=== PATIENT | female | born 1945 ===

== ENCOUNTER 2016-06-23 11:14 | Emergency (ER) | payer OTHER ==
--- NOTE | 2016-06-23 12:38 | DIAGNOSTIC IMAGING REPORT ---
PROCEDURE: XR CHEST 1 VIEW INDICATION: CHEST PAIN TECHNIQUE: Portable AP view 11:52 am COMPARISON: None. FINDINGS: Lungs are clear. Heart and mediastinum are normal. Thorax is normal. IMPRESSION: 1. Negative chest.
--- NOTE | 2016-06-23 13:15 | ED CLINICAL REPORT ---
Clinical Report - Physicians/Mid Levels [facility] [address] [place] [address] 06/23/2016 11:15 Patient: ALPA MERINO Time Seen: 11:37. Arrived- By private vehicle. Historian- patient. HISTORY OF PRESENT ILLNESS Chief Complaint: CHEST PAIN. At its maximum, severity described as moderate. When seen in the E.D., severity described as mild. Modifying factors. Not worsened by anything. Not relieved by anything. It is described as dull and "pain" and it is described as located in the central chest area. No radiation. This started yesterday and is still present. Onset during light activity. No nausea, vomiting, difficulty breathing or diaphoresis. (Pt also c/o "dizziness" (room was spinning). Pt denies h/o cardiac issues. No recent illness. Pt has not had a recent stress test. She is visiting from [place], and was sent here from urgent care.). Similar symptoms previously: None. Recent medical care: The patient was seen recently at another facility in a clinic. ( Pt saw her PCP in [place] before coming up to visit her son.). REVIEW OF SYSTEMS No fever, chills, cough, pedal edema or calf pain. No fainting episodes, headache, sore throat, blurred vision or abdominal pain. No black stools, difficulty with urination, skin rash, enlarged lymph nodes or joint pain. No bloody stools. All systems otherwise negative, except as recorded above. PAST HISTORY Problems: Sciatica. Elevated Cholesterol. Hypertension. Additional Surgeries: no known surgeries. Medications: Lovastatin Oral (Tablet 20 mg) 1 tablet, daily. Atenolol Oral (Tablet 25 mg) 1 tablet, daily. Percocet Oral, as needed, sciatic pain. Allergies: No Known Drug Allergy. SOCIAL HISTORY Never smoker. No alcohol use or drug use. FAMILY HISTORY Negative. ADDITIONAL NOTES The nursing notes have been reviewed. PHYSICAL EXAM Vital Signs: 06/23/2016 11:24 BP: 167/80. HR: 71. RR: 16. O2 saturation: 96%. Temp: 98.6 F. Pain level now: 410. Have been reviewed. Appearance: Alert. Oriented X3. No acute distress. Eyes: Pupils equal, round and reactive to light. Eyes normal inspection. ENT: Nose normal. Neck: Normal inspection. CVS: Normal heart rate and rhythm. Heart sounds normal. Pulses normal. Respiratory: No respiratory distress. Breath sounds normal. Abdomen: Soft and nontender. Back: Normal external inspection. Skin: Skin warm and dry. Normal skin color. No rash. Normal skin turgor. Extremities: Extremities exhibit normal ROM. No lower extremity edema. Neuro: Oriented X 3. No motor deficit. No sensory deficit. LABS, X-RAYS, AND EKG EKG: EKG time: (1138). No acute process. No acute ischemia. Normal EKG. Normal sinus rhythm. Rate: 68. Normal P waves. Normal ANA. Normal QRS complex. Normal axis. Normal ST and T waves, QT and QTc. Prior EKG unavailable. The study has been interpreted contemporaneously by me. The study has been independently viewed by me. The EKG appears to be a good tracing. I agree with and confirm the computer reading of the EKG. Rhythm Strip #1: Time: (1135). Rate= 71. Normal sinus rhythm. Regular rhythm. Narrow QRS complexes. No ectopy. Conduction normal. Normal ST segments and T waves. The study was interpreted by me. Chest X-ray: No acute disease. Normal lung markings present. Normal heart size. Mediastinum normal. Great vessels normal. Soft tissues normal. No infiltrate. No fracture. No bony lesion present. Views: AP (portable). Technique: good. The X-rays were independently viewed by me, interpreted by the radiologist and contemporaneously by me and discussed with the radiologist. Prior films were not available for comparison. Laboratory Tests: CBC w Diff: (MALVIN: 06/23/2016 11:50) ( MsgRcvd 06/23/2016 11:58) Final results Test Result Flag Units (Reference) WHITE BLOOD COUNT 7.1 K/uL (4.5-11.5) RED BLOOD COUNT 4.81 M/uL (4.00-5.20) HEMOGLOBIN 14.6 gm/dL (12.0-16.0) HEMATOCRIT 43.2 % (36.0-46.0) MEAN CELL VOLUME 90 fL (80-100) MEAN CORPUSCULAR HGB 30 pg (26-34) MEAN CORPUSCULAR HGB CONC 34 g/dL (31-37) RED CELL DISTRIBUTION WIDTH 12.4 % (11.6-14.8) PLATELET COUNT 282 K/uL (150-400) NEUTROPHIL % 58.2 % (50-75) LYMPH % 34.3 % (25-40) MONO % 6.3 % (3-14) EOSINOPHIL % 0.8 % (0-4) BASOPHIL % 0.4 % (0-2) CHEM 13 PANEL: (MALVIN: 06/23/2016 11:50) ( MsgRcvd 06/23/2016 12:29) Final results Test Result Flag Units (Reference) GLUCOSE 131 H mg/dL (70-110) BUN 18 mg/dL (7-18) CREATININE 0.7 mg/dL (0.6-1.3) Estimated GFR >60 mL/min Estimated GFR- >60 mL/min Note: Persistent reduction over 3 months in eGFR<60 mL/min/1.73 m2 defines CKD. Patients with eGFR values>=60 mL/min/1.73 m2 may also have CKD if evidence ofpersistent proteinuria. Additional information may be foundat www.kidney.org. SODIUM 141 mmol/L (136-145) POTASSIUM 4.0 mmol/L (3.5-5.1) CHLORIDE 104 mmol/L (98-107) CARBON DIOXIDE 26 mmol/L (21-32) CALCIUM 9.3 mg/dL (8.5-10.1) TOTAL PROTEIN 8.0 g/dL (6.4-8.2) ALBUMIN 3.6 g/dL (3.3-5.0) BILIRUBIN, TOTAL 0.3 mg/dL (0.0-1.0) ALKALINE PHOSPHATASE 73 U/L (46-116) AST (SGOT) 24 U/L (15-37) ALT (SGPT) 35 U/L (12-78) MAGNESIUM 2.1 mg/dL (1.8-2.4) CPK 72 U/L (24-260) TROPONIN I 0.05 ng/mL (0.00-1.5) TROPONIN REFERENCE RANGE:<0.1 NEGATIVE0.1-1.5 INDETERMINANT>1.5 POSITIVE . Pulse Oximetry: 06/23/2016 11:24 O2 saturation: 96%. (FIO2 - room air). Interpretation: normal. PROGRESS AND PROCEDURES Course of Care: Pt was worked up for her chest pain, and work-up was unremarkable. Pt's discomfort had started the day before, and I did feel that it was unlikely that she had suffered an [place] with negative markers this far out. However, I did feel it was important for the pt to follow up for a stress test, and I did offer to set this up with cardiology for early next week (today is Sunday). Pt declined the offer, however, with translation from her son, and stated she would rather see her PCP when she returns to [place] in a couple of weeks. I have emphasized the importance of this to the pt and her family, and they have expressed understanding. They understand that if sx worsen or recur, pt should return to the ED. Patient and family counseled in person regarding the patient's stable condition, test results, diagnosis and need for follow-up. Concerns were addressed. Old medical records reviewed. Disposition: Discharged. Condition: stable and improved. CLINICAL IMPRESSION Chest pain .12 lead EKG performed. INSTRUCTIONS (Your labs, EKG, and x-ray look good.). Warnings: GENERAL WARNINGS: Return or contact your physician immediately if your condition worsens or changes unexpectedly, if not improving as expected, or if other problems arise. Your Current Medications: CONTINUE TAKING THE FOLLOWING MEDICATIONS: Atenolol Oral : Tablet 25 mg, 1 tablet daily. Lovastatin Oral : Tablet 20 mg, 1 tablet daily. Percocet Oral : prn, sciatic pain. Follow-up: Follow up with your doctor. Call for the next available appointment. Reason for referral: schedule stress test. Understanding of the discharge instructions verbalized by patient and family. (Electronically signed by Chanel Soto MD 07/02/2016 15:58)
--- NOTE | 2016-06-23 13:15 | ED NURSING NOTES ---
Clinical Report - Nurses [facility] [address] [place] [address] 06/23/2016 11:15 Patient: ALPA MERINO TRIAGE Triage time 11:24. Acuity: LEVEL 3. Chief Complaint: CHEST PAIN and (substernal, non-reproducible chest pressure, dizziness - room spinning. Onset yesterday.). 11:30 06/23/16. SEPSIS SCREEN: Sepsis Screen. Negative (no infection suspected/documented). FATOU COMA SCORE: [place] Coma Scale: 15- eyes open spontaneously (4); best verbal response- oriented x 4 (5); best motor response- obeys commands (6). --11:33 Andrei Muhammad R.N. 11:24 06/23/16. BP: 167/80. HR: 71. RR: 16. O2 saturation: 96% on room air. Temp: 98.6 F (oral). Pain level now: 06/26. --11:33 Andrei Muhammad R.N. Weight: 74.8 kg stated. Height/Length: 62 inches Per Patient. BMI: 30.2. --11:28 Andrei Muhammad R.N. Medications Percocet Oral, as needed, sciatic pain. --11:32 Andrei Muhammad R.N. Atenolol Oral (Tablet 25 mg) 1 tablet, daily. --11:32 Andrei Muhammad R.N. Lovastatin Oral (Tablet 20 mg) 1 tablet, daily. --11:32 Andrei Muhammad R.N. Allergies No Known Drug Allergy. --11:32 Andrei Muhammad R.N. History Arrived by private vehicle. Historian: patient and family (son is interpreting (pt speaks mostly Palestinian)). Accompanied by family. ( sent from her PCP office). Treatment AIRCRAFT SYSTEMS TECHNICIAN: None. SOCIAL HX: Never smoker. No alcohol use or drug use. ABUSE ASSESSMENT: No report of abuse. --11:33 Andrei Muhammad R.N. PROBLEMS: Elevated Cholesterol. Hypertension. --11:28 Andrei Muhammad R.N. Sciatica. --11:33 Andrei Muhammad R.N. Interventions ID band on patient. To treatment room. --11:33 Andrei Muhammad R.N. PHYSICAL ASSESSMENT 11:37 06/23/16. Ambulatory to room. GENERAL / NEURO / PSYCH: Alert. Oriented X 4. ( c/o dissiness). HEENT: Mucous membranes are pink. RESPIRATORY: Respirations not labored. Chest nontender. Breath sounds within normal limits. CVS: Normal sinus rhythm noted. Heart sounds within normal limits. Pulses within normal limits. ( substernal chest pressure, non-radiating, non-reproducible). Capillary refill less than 2 seconds. GI / : Abdomen soft and nontender. EXTREMITIES: No lower extremity edema. SKIN: Skin is warm and dry. Normal skin turgor. Skin is non-tender. --11:38 Andrei Muhammad R.N. NURSING PROGRESS NOTES 11:38 06/23/16. groundwater monitoring technician, pulse oximeter and NIBP monitor placed on patient; lunchroom monitor- Lead II and aVR; monitor alarms on. Patient gowned. Two patient identifiers checked. Call light placed in reach. Bed placed in lowest position. Brakes of bed on. Patient ready for evaluation- chart flagged. --11:38 Andrei Muhammad R.N. EKG time: (0108). EKG was ordered, performed by a tech and shown to the ED physician. --11:39 Charmaine White 11:51 06/23/2016 Site #1 started via IV in the right hand with an 20g angiocath, with aseptic technique and good blood return; one attempt. Blood drawn: rainbow set. Labeled in the presence of the patient and sent to the lab. Saline lock flushed with 10 mL saline. --12:02 Jud Foster R.N. ( Introduction to pt, no needs at this time. Informed of covering while primary RN is on lunch. Family said no needs at this time and thank you.). --12:13 Tisha Aguirre R.N. DISPOSITION / DISCHARGE 13:37 06/23/2016 Site #1 removed upon discharge. Bandaid applied. --13:37 Jud Foster R.N. Condition at departure: improved. No learning barriers present. Discharge instructions provided and reviewed with the patient and family. Reviewed medication(s) (Melatonin for sleep 5mg and follow up with Doctor for sleep). Patient and family verbalized understanding. Written instructions provided in Surinamese. The patient was discharged by the physician. She was discharged home and accompanied by family. She left the Emergency Department ambulatory and via private vehicle. Family member driving. --13:37 Jud Foster R.N. 13:33 06/23/16. BP: 142/53 (regular adult cuff) taken on the left arm, while lying. HR: 69. RR: 18. O2 saturation: 100% on nasal cannula at 2 liters/minute. Temp: 98.5 F (oral). Pain level now: 0/10. --13:37 Jud Foster R.N. Departure time: 13:40 Jun 23 2016. --13:40 Jud Foster R.N. Locked/Released at 06/23/2016 19:33 by Jud Foster R.N.
--- NOTE | 2016-06-23 13:15 | ED ORDER SUMMARY ---
..... Patient: ALPA MERINO OrderSheet [facility] VisitID: [id number] [address] [place] [address] 70y, F Registration Date/Time: 06/23/2016 ORDER SHEET Weight: 74.8 kg (stated) Allergies: No Known Drug Allergy GENERAL ORDERS: Tower Cleaner (Continuous) (Chest Pain) (11:34 06/23/2016 Del R.N. verbal order read back to April MCINTOSH) (Ack 11:41 Lon) (11:43 JSimbeck R.N.) CBC w Diff Urgent (11:35 06/23/2016 Del R.N. verbal order read back to April MCINTOSH) (Ack 11:40 Lon) (11:58 JSimbeck R.N.) UA-Culture if indicated Urgent (11:35 06/23/2016 Del R.N. verbal order read back to April MCINTOSH) (Ack 11:41 Lon) (11:58 JSimbeck R.N.) Oxygen (2 L/min) (NC) (11:35 06/23/2016 Del R.N. verbal order read back to April MCINTOSH) (Ack 11:41 Lon) (11:44 JSimbeck R.N.) Pulse oximeter (11:35 06/23/2016 Del R.N. verbal order read back to April MCINTOSH) (Ack 11:41 Lon) (11:43 Lolaeck R.N.) EKG - ER Stat (11:35 06/23/2016 Del R.N. verbal order read back to April MCINTOSH) (11:39 Lon) Cardiac Panel Stat (11:36 06/23/2016 Del R.N. verbal order read back to April MCINTOSH) (Ack 11:41 Lon) (11:58 JSimbeck R.N.) Chest 1V Urgent (11:44 06/23/2016 April MCINTOSH) (Ack 11:46 Lon) (12:02 JSanders R.N.) MEDICATION ORDERS: IV FLUIDS: IV Saline Lock (11:35 06/23/2016 JRomanelli R.N. verbal order read back to April MCINTOSH) (12:02 Harpreet Jimenez) ORDER SHEET NOTES: [Electronically signed by Jud Foster R.N. (19:33 06/23/2016)] [Electronically signed by Chanel Soto MD (15:58 07/02/2016)] [Electronically locked/signed by Jud Foster R.N. (19:33 06/23/2016)]
--- NOTE | 2016-06-23 13:15 | ED NURSING NOTES ---
Clinical Report - Nurses [facility] [address] [place] [address] 06/23/2016 11:15 Patient: ALPA MERINO TRIAGE Triage time 11:24. Acuity: LEVEL 3. Chief Complaint: CHEST PAIN and (substernal, non-reproducible chest pressure, dizziness - room spinning. Onset yesterday.). 11:30 06/23/16. SEPSIS SCREEN: Sepsis Screen. Negative (no infection suspected/documented). FATOU COMA SCORE: [place] Coma Scale: 15- eyes open spontaneously (4); best verbal response- oriented x 4 (5); best motor response- obeys commands (6). --11:33 Andrei Muhammad R.N. 11:24 06/23/16. BP: 167/80. HR: 71. RR: 16. O2 saturation: 96% on room air. Temp: 98.6 F (oral). Pain level now: 06/26. --11:33 Andrei Muhammad R.N. Weight: 74.8 kg stated. Height/Length: 62 inches Per Patient. BMI: 30.2. --11:28 Andrei Muhammad R.N. Medications Percocet Oral, as needed, sciatic pain. --11:32 Andrei Muhammad R.N. Atenolol Oral (Tablet 25 mg) 1 tablet, daily. --11:32 Andrei Muhammad R.N. Lovastatin Oral (Tablet 20 mg) 1 tablet, daily. --11:32 Andrei Muhammad R.N. Allergies No Known Drug Allergy. --11:32 Andrei Muhammad R.N. History Arrived by private vehicle. Historian: patient and family (son is interpreting (pt speaks mostly Turkish)). Accompanied by family. ( sent from her PCP office). Treatment BOILER SERVICE TECHNICIAN: None. SOCIAL HX: Never smoker. No alcohol use or drug use. ABUSE ASSESSMENT: No report of abuse. --11:33 Andrei Muhammad R.N. PROBLEMS: Elevated Cholesterol. Hypertension. --11:28 Andrei Muhammad R.N. Sciatica. --11:33 Andrei Muhammad R.N. Interventions ID band on patient. To treatment room. --11:33 Andrei Muhammad R.N. PHYSICAL ASSESSMENT 11:37 06/23/16. Ambulatory to room. GENERAL / NEURO / PSYCH: Alert. Oriented X 4. ( c/o dissiness). HEENT: Mucous membranes are pink. RESPIRATORY: Respirations not labored. Chest nontender. Breath sounds within normal limits. CVS: Normal sinus rhythm noted. Heart sounds within normal limits. Pulses within normal limits. ( substernal chest pressure, non-radiating, non-reproducible). Capillary refill less than 2 seconds. GI / : Abdomen soft and nontender. EXTREMITIES: No lower extremity edema. SKIN: Skin is warm and dry. Normal skin turgor. Skin is non-tender. --11:38 Andrei Muhammad R.N. NURSING PROGRESS NOTES 11:38 06/23/16. manager performance improvement, pulse oximeter and NIBP monitor placed on patient; drill hand- Lead II and aVR; monitor alarms on. Patient gowned. Two patient identifiers checked. Call light placed in reach. Bed placed in lowest position. Brakes of bed on. Patient ready for evaluation- chart flagged. --11:38 Andrei Muhammad R.N. EKG time: (5318). EKG was ordered, performed by a tech and shown to the ED physician. --11:39 Charmaine White 11:51 06/23/2016 Site #1 started via IV in the right hand with an 20g angiocath, with aseptic technique and good blood return; one attempt. Blood drawn: rainbow set. Labeled in the presence of the patient and sent to the lab. Saline lock flushed with 10 mL saline. --12:02 Jud Foster R.N. ( Introduction to pt, no needs at this time. Informed of covering while primary RN is on lunch. Family said no needs at this time and thank you.). --12:13 Tisha Aguirre R.N. DISPOSITION / DISCHARGE 13:37 06/23/2016 Site #1 removed upon discharge. Bandaid applied. --13:37 Jud Foster R.N. Condition at departure: improved. No learning barriers present. Discharge instructions provided and reviewed with the patient and family. Reviewed medication(s) (Melatonin for sleep 5mg and follow up with Doctor for sleep). Patient and family verbalized understanding. Written instructions provided in [place]. The patient was discharged by the physician. She was discharged home and accompanied by family. She left the Emergency Department ambulatory and via private vehicle. Family member driving. --13:37 Jud Foster R.N. 13:33 06/23/16. BP: 142/53 (regular adult cuff) taken on the left arm, while lying. HR: 69. RR: 18. O2 saturation: 100% on nasal cannula at 2 liters/minute. Temp: 98.5 F (oral). Pain level now: 0/10. --13:37 Jud Foster R.N. Departure time: 13:40 Jun 23 2016. --13:40 Jud Foster R.N. Locked/Released at 06/23/2016 19:33 by Jud Foster R.N.
--- NOTE | 2016-06-23 13:15 | ED ORDER SUMMARY ---
..... Patient: ALPA MERINO OrderSheet [facility] VisitID: [id number] [address] [place] [address] 70y, F Registration Date/Time: 06/23/2016 ORDER SHEET Weight: 74.8 kg (stated) Allergies: No Known Drug Allergy GENERAL ORDERS: Cafeteria Counter Attendant (Continuous) (Chest Pain) (11:34 06/23/2016 Del R.N. verbal order read back to April MCINTOSH) (Ack 11:41 Lon) (11:43 JSimbeck R.N.) CBC w Diff Urgent (11:35 06/23/2016 Del R.N. verbal order read back to April MCINTOSH) (Ack 11:40 Lon) (11:58 JSimbeck R.N.) UA-Culture if indicated Urgent (11:35 06/23/2016 Del R.N. verbal order read back to April MCINTOSH) (Ack 11:41 Lon) (11:58 JSimbeck R.N.) Oxygen (2 L/min) (NC) (11:35 06/23/2016 Del R.N. verbal order read back to April MCINTOSH) (Ack 11:41 Lon) (11:44 JSimbeck R.N.) Pulse oximeter (11:35 06/23/2016 Del R.N. verbal order read back to April MCINTOSH) (Ack 11:41 Lon) (11:43 Lolaeck R.N.) EKG - ER Stat (11:35 06/23/2016 Del R.N. verbal order read back to April MCINTOSH) (11:39 Lon) Cardiac Panel Stat (11:36 06/23/2016 Del R.N. verbal order read back to pAril MCINTOSH) (Ack 11:41 Lon) (11:58 JSimbeck R.N.) Chest 1V Urgent (11:44 06/23/2016 April MCINTOSH) (Ack 11:46 Lon) (12:02 JSanders R.N.) MEDICATION ORDERS: IV FLUIDS: IV Saline Lock (11:35 06/23/2016 JRomanelli R.N. verbal order read back to April MCINTOSH) (12:02 Harpreet Jimenez) ORDER SHEET NOTES: [Electronically signed by Jud Foster R.N. (19:33 06/23/2016)] [Electronically signed by Chanel Soto MD (15:58 07/02/2016)] [Electronically locked/signed by Jud Foster R.N. (19:33 06/23/2016)]
--- NOTE | 2016-06-23 13:15 | ED CLINICAL REPORT ---
Clinical Report - Physicians/Mid Levels [facility] [address] [place] [address] 06/23/2016 11:15 Patient: ALPA MERINO Time Seen: 11:37. Arrived- By private vehicle. Historian- patient. HISTORY OF PRESENT ILLNESS Chief Complaint: CHEST PAIN. At its maximum, severity described as moderate. When seen in the E.D., severity described as mild. Modifying factors. Not worsened by anything. Not relieved by anything. It is described as dull and "pain" and it is described as located in the central chest area. No radiation. This started yesterday and is still present. Onset during light activity. No nausea, vomiting, difficulty breathing or diaphoresis. (Pt also c/o "dizziness" (room was spinning). Pt denies h/o cardiac issues. No recent illness. Pt has not had a recent stress test. She is visiting from [place], and was sent here from urgent care.). Similar symptoms previously: None. Recent medical care: The patient was seen recently at another facility in a clinic. ( Pt saw her PCP in [place] before coming up to visit her son.). REVIEW OF SYSTEMS No fever, chills, cough, pedal edema or calf pain. No fainting episodes, headache, sore throat, blurred vision or abdominal pain. No black stools, difficulty with urination, skin rash, enlarged lymph nodes or joint pain. No bloody stools. All systems otherwise negative, except as recorded above. PAST HISTORY Problems: Sciatica. Elevated Cholesterol. Hypertension. Additional Surgeries: no known surgeries. Medications: Lovastatin Oral (Tablet 20 mg) 1 tablet, daily. Atenolol Oral (Tablet 25 mg) 1 tablet, daily. Percocet Oral, as needed, sciatic pain. Allergies: No Known Drug Allergy. SOCIAL HISTORY Never smoker. No alcohol use or drug use. FAMILY HISTORY Negative. ADDITIONAL NOTES The nursing notes have been reviewed. PHYSICAL EXAM Vital Signs: 06/23/2016 11:24 BP: 167/80. HR: 71. RR: 16. O2 saturation: 96%. Temp: 98.6 F. Pain level now: 410. Have been reviewed. Appearance: Alert. Oriented X3. No acute distress. Eyes: Pupils equal, round and reactive to light. Eyes normal inspection. ENT: Nose normal. Neck: Normal inspection. CVS: Normal heart rate and rhythm. Heart sounds normal. Pulses normal. Respiratory: No respiratory distress. Breath sounds normal. Abdomen: Soft and nontender. Back: Normal external inspection. Skin: Skin warm and dry. Normal skin color. No rash. Normal skin turgor. Extremities: Extremities exhibit normal ROM. No lower extremity edema. Neuro: Oriented X 3. No motor deficit. No sensory deficit. LABS, X-RAYS, AND EKG EKG: EKG time: (1138). No acute process. No acute ischemia. Normal EKG. Normal sinus rhythm. Rate: 68. Normal P waves. Normal ANA. Normal QRS complex. Normal axis. Normal ST and T waves, QT and QTc. Prior EKG unavailable. The study has been interpreted contemporaneously by me. The study has been independently viewed by me. The EKG appears to be a good tracing. I agree with and confirm the computer reading of the EKG. Rhythm Strip #1: Time: (1135). Rate= 71. Normal sinus rhythm. Regular rhythm. Narrow QRS complexes. No ectopy. Conduction normal. Normal ST segments and T waves. The study was interpreted by me. Chest X-ray: No acute disease. Normal lung markings present. Normal heart size. Mediastinum normal. Great vessels normal. Soft tissues normal. No infiltrate. No fracture. No bony lesion present. Views: AP (portable). Technique: good. The X-rays were independently viewed by me, interpreted by the radiologist and contemporaneously by me and discussed with the radiologist. Prior films were not available for comparison. Laboratory Tests: CBC w Diff: (MALVIN: 06/23/2016 11:50) ( MsgRcvd 06/23/2016 11:58) Final results Test Result Flag Units (Reference) WHITE BLOOD COUNT 7.1 K/uL (4.5-11.5) RED BLOOD COUNT 4.81 M/uL (4.00-5.20) HEMOGLOBIN 14.6 gm/dL (12.0-16.0) HEMATOCRIT 43.2 % (36.0-46.0) MEAN CELL VOLUME 90 fL (80-100) MEAN CORPUSCULAR HGB 30 pg (26-34) MEAN CORPUSCULAR HGB CONC 34 g/dL (31-37) RED CELL DISTRIBUTION WIDTH 12.4 % (11.6-14.8) PLATELET COUNT 282 K/uL (150-400) NEUTROPHIL % 58.2 % (50-75) LYMPH % 34.3 % (25-40) MONO % 6.3 % (3-14) EOSINOPHIL % 0.8 % (0-4) BASOPHIL % 0.4 % (0-2) CHEM 13 PANEL: (MALVIN: 06/23/2016 11:50) ( MsgRcvd 06/23/2016 12:29) Final results Test Result Flag Units (Reference) GLUCOSE 131 H mg/dL (70-110) BUN 18 mg/dL (7-18) CREATININE 0.7 mg/dL (0.6-1.3) Estimated GFR >60 mL/min Estimated GFR- >60 mL/min Note: Persistent reduction over 3 months in eGFR<60 mL/min/1.73 m2 defines CKD. Patients with eGFR values>=60 mL/min/1.73 m2 may also have CKD if evidence ofpersistent proteinuria. Additional information may be foundat www.kidney.org. SODIUM 141 mmol/L (136-145) POTASSIUM 4.0 mmol/L (3.5-5.1) CHLORIDE 104 mmol/L (98-107) CARBON DIOXIDE 26 mmol/L (21-32) CALCIUM 9.3 mg/dL (8.5-10.1) TOTAL PROTEIN 8.0 g/dL (6.4-8.2) ALBUMIN 3.6 g/dL (3.3-5.0) BILIRUBIN, TOTAL 0.3 mg/dL (0.0-1.0) ALKALINE PHOSPHATASE 73 U/L (46-116) AST (SGOT) 24 U/L (15-37) ALT (SGPT) 35 U/L (12-78) MAGNESIUM 2.1 mg/dL (1.8-2.4) CPK 72 U/L (24-260) TROPONIN I 0.05 ng/mL (0.00-1.5) TROPONIN REFERENCE RANGE:<0.1 NEGATIVE0.1-1.5 INDETERMINANT>1.5 POSITIVE . Pulse Oximetry: 06/23/2016 11:24 O2 saturation: 96%. (FIO2 - room air). Interpretation: normal. PROGRESS AND PROCEDURES Course of Care: Pt was worked up for her chest pain, and work-up was unremarkable. Pt's discomfort had started the day before, and I did feel that it was unlikely that she had suffered an ID with negative markers this far out. However, I did feel it was important for the pt to follow up for a stress test, and I did offer to set this up with cardiology for early next week (today is Sunday). Pt declined the offer, however, with translation from her son, and stated she would rather see her PCP when she returns to [place] in a couple of weeks. I have emphasized the importance of this to the pt and her family, and they have expressed understanding. They understand that if sx worsen or recur, pt should return to the ED. Patient and family counseled in person regarding the patient's stable condition, test results, diagnosis and need for follow-up. Concerns were addressed. Old medical records reviewed. Disposition: Discharged. Condition: stable and improved. CLINICAL IMPRESSION Chest pain .12 lead EKG performed. INSTRUCTIONS (Your labs, EKG, and x-ray look good.). Warnings: GENERAL WARNINGS: Return or contact your physician immediately if your condition worsens or changes unexpectedly, if not improving as expected, or if other problems arise. Your Current Medications: CONTINUE TAKING THE FOLLOWING MEDICATIONS: Atenolol Oral : Tablet 25 mg, 1 tablet daily. Lovastatin Oral : Tablet 20 mg, 1 tablet daily. Percocet Oral : prn, sciatic pain. Follow-up: Follow up with your doctor. Call for the next available appointment. Reason for referral: schedule stress test. Understanding of the discharge instructions verbalized by patient and family. (Electronically signed by Chanel Soto MD 07/02/2016 15:58)
--- NOTE | 2016-07-02 15:58 | ED MED RECONCILIATION SUMMARY ---
Patient: ALPA MERINO Medication Reconciliation Report [facility] VisitID: [id number] [address] [place] [place] [address] 70y, F Registration Date/Time: 06/23/2016 Weight: 74.8 kg Height/Length: 62 in. BMI: 30.2 ALLERGIES: No Known Drug Allergy The patient's Home Medications are listed below: CONTINUE TAKING THE FOLLOWING MEDICATIONS: Atenolol Oral (25 mg) 1 tablet, daily Lovastatin Oral (20 mg) 1 tablet, daily Percocet Oral, sciatic pain The source(s) of the original Home Medication information: Not obtained. The following Medications were given to the patient in the Emergency Department: None. The following Medications were prescribed to the patient: None.
--- NOTE | 2016-07-02 15:58 | ED MED RECONCILIATION SUMMARY ---
Patient: ALPA MERINO Medication Reconciliation Report [facility] VisitID: [id number] [address] [place] [place] [address] 70y, F Registration Date/Time: 06/23/2016 Weight: 74.8 kg Height/Length: 62 in. BMI: 30.2 ALLERGIES: No Known Drug Allergy The patient's Home Medications are listed below: CONTINUE TAKING THE FOLLOWING MEDICATIONS: Atenolol Oral (25 mg) 1 tablet, daily Lovastatin Oral (20 mg) 1 tablet, daily Percocet Oral, sciatic pain The source(s) of the original Home Medication information: Not obtained. The following Medications were given to the patient in the Emergency Department: None. The following Medications were prescribed to the patient: None.
--- NOTE | 2016-07-02 15:58 | ED DISCHARGE INSTRUCTIONS ---
Patient: ALPA MERINO General Instructions [facility] VisitID: [id number] [address] [place] [address] 70y, F Registration Date/Time: 06/23/2016 Chest pain .12 lead EKG performed. INSTRUCTIONS (Your labs, EKG, and x-ray look good.). Warnings: GENERAL WARNINGS: Return or contact your physician immediately if your condition worsens or changes unexpectedly, if not improving as expected, or if other problems arise. Your Current Medications: CONTINUE TAKING THE FOLLOWING MEDICATIONS: Atenolol Oral : Tablet 25 mg, 1 tablet daily. Lovastatin Oral : Tablet 20 mg, 1 tablet daily. Percocet Oral : prn, sciatic pain. Follow-up: Follow up with your doctor. Call for the next available appointment. Reason for referral: schedule stress test. Understanding of the discharge instructions verbalized by patient and family. ADDITIONAL INFORMATION Chest Pain, Uncertain Cause Chest pain can happen for a number of reasons. Sometimes the cause can not be determined. If yourcondition does not seem serious, and your pain does not appear to be coming from your heart, your doctor may recommend watching it closely. Sometimes the signs of a serious problem take more time to appear. Therefore, watch for the warning signs listed below. Home care After your visit, follow these recommendations: Rest today and avoid strenuous activity. Take any prescribed medicine as directed. Follow-up care Follow up with your doctor or this facility as instructed or if you do not start to feel better within 24 hours. Call 911 Get immediate medical attention if any of the following occur: A change in the type of pain: if it feels different, becomes more severe, lasts longer, or begins to spread into your shoulder, arm, neck, jaw or back Shortness of breath or increased pain with breathing Weakness, dizziness, or fainting Rapid heart beat Get prompt medical attention Call your doctor right away if any of the following occur: Cough with dark colored sputum (phlegm) or blood Fever of 100.4F(38C) or higher, or as directed by your health care provider Swelling, pain or redness in one leg You have been given the following additional information: Chest Pain, Uncertain Cause (Electronically signed by Chanel Soto MD 07/02/2016 15:58)
--- NOTE | 2016-07-02 15:58 | ED MAR SUMMARY ---
..... Medication Administration Record [facility] [address] [place], [place] [id number] Patient: ALPA MERINO Visit ID: [id number] 70y, F Weight: 74.8 kg Height/Length: 62 in BMI: 30.2 ALLERGIES: No Known Drug Allergy
--- NOTE | 2016-07-02 15:58 | ED MAR SUMMARY ---
..... Medication Administration Record [facility] [address] [place], [place] [id number] Patient: ALPA MERINO Visit ID: [id number] 70y, F Weight: 74.8 kg Height/Length: 62 in BMI: 30.2 ALLERGIES: No Known Drug Allergy
== END 2016-06-23 13:40 | disposition home or self-care (01) ==
LOC: ED SRH 11:14
DX: R07.9 Chest pain, unspecified (principal); I10 Essential (primary) hypertension
CPT/HCPCS: 90100; 90616; 92610; 92720; 95059